=== PATIENT | female | born 1970 | race Two or more races ===

== ENCOUNTER 2020-01-07 08:41 | Emergency (ER) | payer OTHER ==
[~2020-01-07] VITALS: Ht 162.6 cm; Wt 77.1 kg
== END 2020-01-07 11:26 | disposition home or self-care (01) ==
LOC: ER 08:41
DX: R00.2 Palpitations (principal)

== ENCOUNTER → 2020-11-14 | Emergency (ER) | payer OTHER ==
[~2020-11-14] VITALS: Ht 162.6 cm; Wt 78.0 kg
== END | disposition left against medical advice (07) ==
LOC: ER 01:25
DX: Z53.21 Procedure and treatment not carried out due to patient leaving prior to being seen by health care provider (principal)

== ENCOUNTER 2022-01-19 04:54 | Emergency (ER) | payer OTHER ==
[~2022-01-19] VITALS: Ht 162.6 cm; Wt 79.4 kg
[2022-01-19] MEDS ORDERED: PROPRANOLOL HCL10 MG (05:19)
== END 2022-01-19 06:17 | disposition home or self-care (01) ==
LOC: ER 04:54
DX: R00.2 Palpitations (principal)

== ENCOUNTER 2022-03-02 04:12 | Emergency (ER) | payer OTHER ==
[~2022-03-02] VITALS: Ht 162.6 cm; Wt 77.1 kg
[~2022-03-02 04:12] MED LIST: PROPRANOLOL HCL10 MG
[2022-03-02] MEDS ORDERED: ACID REDUCER20 M1 (04:23)
[2022-03-02] MEDS ORDERED: CEPHALEXIN750 MG (04:23)
== END 2022-03-02 11:30 | disposition home or self-care (01) ==
LOC: ER 04:12
DX: K29.70 Gastritis, unspecified, without bleeding (principal); L03.90 Cellulitis, unspecified

== ENCOUNTER 2022-03-21 09:48 | Outpatient (CLI) | payer OTHER ==
[~2022-03-21 09:48] MED LIST changes: +ACID REDUCER20 M1; +CEPHALEXIN750 MG
== END 2022-03-21 09:53 | disposition home or self-care (01) ==
LOC: RX STUDY 09:48
DX: R07.9 Chest pain, unspecified (principal); K21.00 Gastro-esophageal reflux disease with esophagitis, without bleeding

== ENCOUNTER 2023-05-05 11:29 | Emergency (ER) | payer OTHER ==
[~2023-05-05] VITALS: Ht 162.6 cm; Wt 77.1 kg
[2023-05-05] MEDS ORDERED: COZAAR100 MG PO (12:16)
[2023-05-05] MEDS ORDERED: TOPROL XL100 M1 PO (12:17)
[2023-05-05] MEDS ORDERED: BUSPIRONE HCL7.5 MG ×2 (12:17→12:18)
[2023-05-05] MEDS ORDERED: BUPROPION XL450 MG (12:18)
== END 2023-05-05 15:44 | disposition home or self-care (01) ==
LOC: ER 11:29
DX: K21.9 Gastro-esophageal reflux disease without esophagitis (principal); K29.70 Gastritis, unspecified, without bleeding

== ENCOUNTER 2024-10-03 06:54 | Emergency (ER) | payer OTHER ==
[~2024-10-03] VITALS: Ht 162.6 cm; Wt 72.6 kg
[~2024-10-03 06:54] MED LIST changes: +BUPROPION XL450 MG; +BUSPIRONE HCL7.5 MG; +COZAAR100 MG PO; +TOPROL XL100 M1 PO
[2024-10-03] MEDS ORDERED: OZEMPIC0.25 MG/02 SQ (07:26)
[2024-10-03] MEDS ORDERED: KETOROLAC TROMETHAMINE 60 MG VIAL IM ONE (09:30)
[2024-10-03 09:44] LABS: HEMATOCRIT 41.1 % (36.0-45.00); HEMOGLOBIN 14.1 g/dL (12.0-15.00); MEAN CELL VOLUME 90.6 fL (80.00-100.00); MEAN CORPUSCULAR HEMOGLOBIN 31.1 pg (27.00-32.0); MEAN CORPUSCULAR HGB CONC 34.4 g/dl (32.0-36.0); PLATELET COUNT 199 K/uL (150-450); RED BLOOD COUNT 4.54 M/uL (4.00-6.00); RED CELL DISTRIBUTION WIDTH 13.2 % (11.5-14.5)
[2024-10-03] MEDS ORDERED: NASAL MIST126 ML NASAL (10:59)
[2024-10-03] MEDS ORDERED: ZITHROMAX500 MG PO (10:59)
== END 2024-10-03 11:02 | disposition home or self-care (01) ==
LOC: ER 06:56
PROVIDERS: Emergency Medicine
DX: J18.9 Pneumonia, unspecified organism (principal); J00 Acute nasopharyngitis [common cold]; Z20.822 Contact with and (suspected) exposure to COVID-19

== ENCOUNTER 2024-11-28 15:54 | Outpatient (CLI) | payer OTHER ==
[~2024-11-28 15:54] MED LIST changes: +NASAL MIST126 ML NASAL; +OZEMPIC0.25 MG/02 SQ; +ZITHROMAX500 MG PO
== END 2024-11-28 16:02 | disposition home or self-care (01) ==
LOC: RAD 15:54
PROVIDERS: ATTEND Internal Medicine Pulmonary Disease
DX: J15.9 Unspecified bacterial pneumonia (principal)

== ENCOUNTER 2025-04-18 08:42 | Emergency (ER) | payer OTHER ==
[~2025-04-18] VITALS: Ht 162.6 cm; Wt 69.4 kg
[2025-04-18] MEDS ORDERED: MOUNJARO2.5 MG/0.5 PO (09:04)
[2025-04-18] MEDS ORDERED: NEXIUM40 M1 (09:04)
[2025-04-18] MEDS ORDERED: SODIUM CHLORIDE 0.45 % 1,000 ML IV SCH (09:15)
[2025-04-18 10:10] LABS: BASO % 1.0 % (0.1-1.2); EOS # 0.16 (0.04-0.54); EOS % 3.3 % (0.7-7.0); LYMPH # 1.09 (1.18-3.74); LYMPH % 22.2 % (19.3-53.1); MEAN PLATELET VOLUME 10.40 fl (9.4-12.4); MONO # 0.29 (0.24-0.82); MONO % 5.9 % (4.7-12.5); NEUT # 3.31 (1.56-6.13); NEUT % 67.4 % (34.0-71.1); RED CELL DISTRIBUTION WIDTH 12.2 % (11.6-14.4)
[2025-04-18 10:31] LABS: INR 0.99
[2025-04-18 11:05] LABS: URINE APPEARANCE Clear; URINE BILIRRUBIN Negative (NEGATIVE); URINE BLOOD Negative; URINE COLOR Yellow; URINE GLUCOSE Negative (NEGATIVE); URINE KETONE Negative (NEGATIVE); URINE LEUKOCYTE Trace; URINE NITRATE Negative; URINE PROTEIN Negative (NEGATIVE); URINE UROBILINOGEN 0.2 E.U./dl
[2025-04-18 11:11] LABS: URINE BACTERIA 105.5 uL (0.0-1933); URINE RBC 6.4 uL (0.0-20.8); URINE WBC 9.2 uL (0.0-23.2)
[2025-04-18 11:13] LABS: ALT/SGPT 24.0 U/L (12-78); AST/SGOT 12.0 U/L (15-37); BUN CREA RATIO 13.0 (7.0-25.0); CREATININE SERUM 0.71 mg/dL (0.55-1.02); GFR 86.11; GLUCOSE FASTING 83.0 mg/dL (65-100); LDH 165.0 U/L (84-246); OSMOLALITY SERUM 281.0 MOSM/KG (275-295); PHOSPHOKINASE CREATININE 54.0 U/L (26-192)
[2025-04-18 11:57] LABS: URINE CAST 0.00 uL (0.0-1.40); URINE EPITHELIAL CELLS 0.9 uL (0.0-38.8)
== END 2025-04-18 13:24 | disposition home or self-care (01) ==
LOC: ER 08:42
PROVIDERS: Emergency Medicine
DX: I10 Essential (primary) hypertension (principal); Z88.8 Allergy status to other drugs, medicaments and biological substances

== ENCOUNTER → 2025-04-20 | Emergency (ER) | payer OTHER ==
[~2025-04-20] MED LIST changes: +MOUNJARO2.5 MG/0.5 PO; +NEXIUM40 M1
== END | disposition left against medical advice (07) ==
LOC: ER 06:43
DX: Z53.21 Procedure and treatment not carried out due to patient leaving prior to being seen by health care provider (principal)

== ENCOUNTER → 2025-04-21 | Emergency (ER) | payer OTHER ==
[~2025-04-21] VITALS: Ht 162.6 cm; Wt 68.9 kg
== END | disposition home or self-care (01) ==
LOC: ER 11:55
DX: I10 Essential (primary) hypertension (principal); Z88.8 Allergy status to other drugs, medicaments and biological substances